=== PATIENT | male | born 1930 | race Caucasian/White ===

== ENCOUNTER 2020-09-01 00:39 | Emergency (ER) | payer MEDICARE ==
[~2020-09-01] VITALS: Ht 175.3 cm; Wt 70.3 kg
[2020-09-01 00:39] VITALS: BP_SYST 125
--- NOTE | 2020-09-01 00:39 | NUR ---
Pt josé manuel from home to bed 3 for evaluation
--- NOTE | 2020-09-01 00:55 | NUR ---
PT BIB BLS FROM HOME A&O X4 C/O RIGHT AND LEFT MIDDLE TO LOWER ABDOMINAL PAIN THAT STARTED EARLIER TODAY. PT REPORTS VOMITING "HALF A DOZEN TIMES". PT VOMIT APPEARS YELLOW IN COLOR. PT REPORTS 10 OUT OF 10. DENIES TAKING PAIN MEDICATION AT HOME. PT HX OF HYPERTENSION.
--- NOTE | 2020-09-01 01:00 | NUR ---
ER Dr. MEEK at bedside examining patient.
--- NOTE | 2020-09-01 01:05 | NUR ---
# 20 gauge angiocath placed to RIGHT UPPER ARM. Use of asceptic technique. Opsite placed over site. Blood return noted. Blood, BLOOD CULTURES, LACTIC for lab drawn from site. Flushed with 10 cc of normal saline. No evidence of infiltration noted. Patient tolerated well.
[2020-09-01] MEDS ORDERED: MORPHINE 4 MG/ML INJ. SYRINGE IVP ONE (01:15)
[2020-09-01] MEDS ORDERED: ONDANSETRON HCL 4 MG/2 ML VIAL IVP ONE (01:15)
[2020-09-01] MEDS ORDERED: NACL 0.9% 1,000 ML IV ONE (01:15)
--- NOTE | 2020-09-01 01:33 | NUR ---
RADIOLOGY AT BEDSIDE FOR XRAY.
--- NOTE | 2020-09-01 01:35 | NUR ---
CT CONSENT FORM SIGNED BY PATIENT AND PLACED IN CHART.
[2020-09-01 01:44] LABS: BASOPHILS % (AUTO) 0.3 % (0.0-2.0); EOSINOPHILS % (AUTO) 0.2 % (0.0-4.0); HEMATOCRIT 38.4 % (36-54); HEMOGLOBIN 12.4 g/dL (14.0-18.0); LYMPHOCYTES % (AUTO) 17.3 % (20.5-51.5); MEAN CORPUSCULAR HEMOGLOBIN 29 pg (27-31); MEAN CORPUSCULAR HGB CONC 32 % (32-36); MEAN CORPUSCULAR VOLUME 91 fL (79.0-98.0); NEUTROPHILS % (AUTO) 79.2 % (40.0-70.0); PLATELET COUNT (AUTO) 142 K/uL (130-430); RED BLOOD CELL COUNT(AUTO) 4.24 MIL/uL (4.2-6.2); RED CELL DISTRIBUTION WIDTH 16.9 % (9.0-15.0); WHITE BLOOD COUNT (AUTO) 6.3 K/uL (4.8-10.8)
[2020-09-01 01:45] LABS: LYMPHOCYTES # (AUTO) 1.1 K/uL (1.0-5.5); MONOCYTES # (AUTO) 0.2 K/uL (0.0-1.0)
[2020-09-01] MEDS ORDERED: fentaNYL CITRATE/PF 100 MCG/2 ML AMP IVP ONE (01:45)
[2020-09-01 01:49] LABS: PROTHROMBIN TIME 10.3 SECS (9.5-12.5)
[2020-09-01] MEDS ORDERED: fentaNYL CITRATE/PF 100 MCG/2 ML AMP ONE (01:49)
[2020-09-01 01:51] LABS: ANION GAP 13 (5-15); CALCIUM 9.4 mg/dL (8.4-11.0); CHLORIDE 102 mmol/L (98-107); GLUCOSE 192 mg/dL (70-99); POTASSIUM 5.1 mmol/L (3.5-5.1); SODIUM SERUM 139 mmol/L (136-145); UREA NITROGEN, BLOOD 39 mg/dL (8-21)
--- NOTE | 2020-09-01 01:52 | NUR ---
PT MEDICATED PER MD ORDERS. PT TOLERATED WELL.
[2020-09-01 01:57] LABS: ALANINE AMINOTRANSFERASE 20 U/L (12-78); ALBUMIN 4.3 g/dL (3.4-4.8); ASPARTATE AMINOTRANSFERASE 17 U/L (10-37); LIPASE 95 U/L (73-393); TOTAL BILIRUBIN 0.8 mg/dL (0.0-1.0)
--- NOTE | 2020-09-01 02:15 | NUR ---
Patient transported to radiology via GURNEY, accompanied by CLINT AND RN.
--- NOTE | 2020-09-01 02:34 | NUR ---
Returned from radiology, back to [facility]. VSS. NO REACTION NOTED TO CONTRAST.
[2020-09-01] MEDS ORDERED: ASPI-1155 PO (02:48)
[2020-09-01] MEDS ORDERED: CARV3.1246 PO (02:48)
[2020-09-01] MEDS ORDERED: FURO-149 PO (02:48)
[2020-09-01] MEDS ORDERED: POTA20TA83 PO (02:48)
--- NOTE | 2020-09-01 02:49 | NUR ---
Medication reconciliation completed with information provided by [facility]. Any prior medication reconciliation on file was reviewed and corrected.
--- NOTE | 2020-09-01 03:23 | NUR ---
PT ABLE TO GIVE URINE SAMPLE IN URINAL. SENT TO LAB. PT RESTING IN [facility]. PROVIDED WITH BLANKETS. VSS.
[2020-09-01 03:29] LABS: BILIRUBIN,URINE NEGATIVE (NEGATIVE); BLOOD, URINE 1+ (NEGATIVE); CLARITY/URINE CLEAR (CLEAR); COLOR,URINE YELLOW (YELLOW); GLUCOSE,URINE NEGATIVE (NEGATIVE); KETONES,URINE TRACE (NEGATIVE); LEUKOCYTE ESTERASE ,URINE NEGATIVE (NEGATIVE); NITRITE, URINE NEGATIVE (NEGATIVE); PROTEIN URINE NEGATIVE (NEGATIVE); UROBILINOGEN,URINE 0.2 (0.2-1.0)
[2020-09-01 03:32] LABS: BACTERIA,URINE FEW /HPF (None Seen); WBC,URINE 0-3 /HPF (0-3)
--- NOTE | 2020-09-01 03:58 | NUR ---
CALLED [facility], WHO WILL BE HERE IN 20 MINS TO CHECKOUT SUPERVISOR PATIENT.
[2020-09-01 04:33] VITALS: BP_SYST 105
== END 2020-09-01 04:33 | disposition home or self-care (01) ==
LOC: SED 00:39
DX: R10.12 Left upper quadrant pain (principal); D64.9 Anemia, unspecified; Z79.899 Other long term (current) drug therapy; Z79.82 Long term (current) use of aspirin
CPT/HCPCS: 36415; 71045; 74177; 76376; 80053; 81000; 83690; 85025; 85610; 85730; 93005; 96361; 96374; 96375; 99285; J2270; J2405; J3010; J7030; Q9967

== ENCOUNTER 2020-09-01 20:44 | Emergency (ER) | payer MEDICARE, SELFPAY ==
[~2020-09-01] VITALS: Ht 177.8 cm; Wt 54.4 kg
[~2020-09-01 20:44] MED LIST: ASPI-1155 PO; CARV3.1246 PO; FURO-149 PO; POTA20TA83 PO
[2020-09-01 20:51] VITALS: BP_SYST 122
--- NOTE | 2020-09-01 20:51 | NUR ---
Patient to ER bed 08 to gown for evaluation. Side rails up. Report given to ALESSANDRO Camacho
--- NOTE | 2020-09-01 20:52 | NUR ---
Pt brought by Son, A&Ox4, pt presents to ER with abdominal, N/V since yesterday getting worse today , skin pink and warm,cap refill <3, respirations even and unlabored, pt denies diarrhea or bleeding, will cont to monitor.
--- NOTE | 2020-09-01 20:55 | NUR ---
Dr Greenberg evaluating patient at bedside
[2020-09-01] MEDS ORDERED: ONDANSETRON HCL 4 MG/2 ML VIAL IVP ONE (21:15)
[2020-09-01] MEDS ORDERED: MORPHINE 2 MG/ML INJ. SYRINGE IVP ONE ×2 (21:15→23:00)
[2020-09-01 21:29] LABS: BASOPHILS % (AUTO) 0.4 % (0.0-2.0); HEMATOCRIT 39.8 % (36-54); HEMOGLOBIN 12.7 g/dL (14.0-18.0); LYMPHOCYTES # (AUTO) 0.5 K/uL (1.0-5.5); LYMPHOCYTES % (AUTO) 4.4 % (20.5-51.5); MEAN CORPUSCULAR HEMOGLOBIN 29 pg (27-31); MEAN CORPUSCULAR HGB CONC 32 % (32-36); MEAN CORPUSCULAR VOLUME 90 fL (79.0-98.0); MONOCYTES # (AUTO) 0.8 K/uL (0.0-1.0); MONOCYTES % (AUTO) 6.9 % (1.7-9.3); NEUTROPHILS # (AUTO) 9.8 K/uL (1.8-7.7); NEUTROPHILS % (AUTO) 88.3 % (40.0-70.0); PLATELET COUNT (AUTO) 140 K/uL (130-430); RED BLOOD CELL COUNT(AUTO) 4.42 MIL/uL (4.2-6.2); WHITE BLOOD COUNT (AUTO) 11.1 K/uL (4.8-10.8)
--- NOTE | 2020-09-01 21:30 | NUR ---
Pt resting at this time, A&Ox4, VSS
[2020-09-01 21:52] LABS: ANION GAP 9 (5-15); CALCIUM 9.4 mg/dL (8.4-11.0); CHLORIDE 106 mmol/L (98-107); CREATININE 1.26 mg/dL (0.55-1.30); GLUCOSE 169 mg/dL (70-99); POTASSIUM 5.3 mmol/L (3.5-5.1); SODIUM SERUM 140 mmol/L (136-145); UREA NITROGEN, BLOOD 37 mg/dL (8-21)
[2020-09-01 21:58] LABS: ALANINE AMINOTRANSFERASE 19 U/L (12-78); ALBUMIN 3.9 g/dL (3.4-4.8); AMYLASE 71 U/L (0-100); ASPARTATE AMINOTRANSFERASE 25 U/L (10-37); LACTATE DEHYDROGENASE 201 U/L (85-227); LIPASE 77 U/L (73-393); TOTAL BILIRUBIN 1.1 mg/dL (0.0-1.0)
[2020-09-01 22:02] LABS: C-REACTIVE PROTEIN QUANT 5.1 mg/dL (0-0.5)
[2020-09-01 22:04] LABS: INR 1.1 (0.80-1.20); PROTHROMBIN TIME 10.8 SECS (9.5-12.5)
[2020-09-01] MEDS ORDERED: NS 1000 ML IV.SOLN IV ONE (22:15)
[2020-09-01] MEDS ORDERED: metroNIDAZOLE 500 mg/NS 100 ML IV ONE (22:15)
[2020-09-01] MEDS ORDERED: PIPERACILLIN/TAZO 3.38 GM in NS 50 ML IV ONE (22:15)
[2020-09-01 22:16] LABS: BILIRUBIN,URINE 1+ (NEGATIVE); BLOOD, URINE 2+ (NEGATIVE); CLARITY/URINE CLEAR (CLEAR); COLOR,URINE YELLOW (YELLOW); GLUCOSE,URINE NEGATIVE (NEGATIVE); KETONES,URINE NEGATIVE (NEGATIVE); LEUKOCYTE ESTERASE ,URINE NEGATIVE (NEGATIVE); NITRITE, URINE NEGATIVE (NEGATIVE); PH,URINE 5.5 (5.0-8.0); PROTEIN URINE TRACE (NEGATIVE); UROBILINOGEN,URINE 0.2 (0.2-1.0)
--- NOTE | 2020-09-01 22:20 | NUR ---
Pt with Hx of CHF, Dr Greenberg awared, per Dr Greenberg Bolus of fluids can be administered x 1 for possible sepsis. fluids started at this time
[2020-09-01] MEDS ORDERED: PIPERACILLIN/TAZOBACTAM 3.375 GM/VIAL (ZOSYN) IV ONE ×2 (22:31→23:33)
[2020-09-01 22:34] LABS: BACTERIA,URINE MODERATE /HPF (None Seen)
--- NOTE | 2020-09-01 22:56 | NUR ---
Morphine 2mg IVP given as ordered for persistent pain , well tolerated.
--- NOTE | 2020-09-01 23:01 | NUR ---
Reportn given to October RN
--- NOTE | 2020-09-01 23:38 | NUR ---
Blood for labwork drawn from [employer]. Patient tolerated well.
--- NOTE | 2020-09-02 00:18 | NUR ---
Patient's family at bedside.
--- NOTE | 2020-09-02 02:30 | NUR ---
Patient to be transferred to [facility] . Is being transferred due to higher level of care. Receiving facility has accepting physician and available space. ER physician has signed transfer form. Patient or responsible alliance party has agreed to transfer and signed form. Patient belongings inventoried and will be sent with patient. Copy of nursing notes, lab reports, EKG, Physicians Orders and X-rays to be sent with patient. Report called to ALESSANDRO Escalante at receiving facility. Receiving physician is . [facility] ambulance service has been called for transfer. ETA is 15 minutes.
[2020-09-02 03:09] VITALS: BP_SYST 106
--- NOTE | 2020-09-02 03:09 | NUR ---
Patient will transfer to [facility] via gurney with BLS/EMT.
--- NOTE | 2020-09-02 03:14 | NUR ---
Called patient's family (his partner) to update patient's status and transfer to [facility].
== END 2020-09-02 03:09 | disposition short-term general hospital (02) ==
LOC: SED 20:44
DX: R10.9 Unspecified abdominal pain (principal); K56.609 Unspecified intestinal obstruction, unspecified as to partial versus complete obstruction; R77.8 Other specified abnormalities of plasma proteins; I11.0 Hypertensive heart disease with heart failure; I50.9 Heart failure, unspecified; Z79.899 Other long term (current) drug therapy; Z79.82 Long term (current) use of aspirin; Z20.822 Contact with and (suspected) exposure to COVID-19
CPT/HCPCS: 36415; 74018; 80053; 81000; 82150; 83605; 83615; 83690; 84484; 85025; 85610; 85730; 86140; 87040; 87081; 87086; 87426; 93005; 96365; 96366; 96375; 96376; 99285; J2270; J2405; J2543; J3490; J7030

== ENCOUNTER 2020-10-12 17:11 | Emergency (ER) | payer MEDICARE, SELFPAY ==
[~2020-10-12] VITALS: Ht 177.8 cm; Wt 50.8 kg
[2020-10-12 17:19] VITALS: BP_SYST 167
[2020-10-12 18:04] LABS: BASOPHILS % (AUTO) 0.6 % (0.0-2.0); HEMATOCRIT 44.5 % (36-54); HEMOGLOBIN 14.5 g/dL (14.0-18.0); LYMPHOCYTES # (AUTO) 0.8 K/uL (1.0-5.5); LYMPHOCYTES % (AUTO) 16.1 % (20.5-51.5); MEAN CORPUSCULAR HEMOGLOBIN 30 pg (27-31); MEAN CORPUSCULAR HGB CONC 33 % (32-36); MEAN CORPUSCULAR VOLUME 92 fL (79.0-98.0); MONOCYTES # (AUTO) 0.4 K/uL (0.0-1.0); MONOCYTES % (AUTO) 7.1 % (1.7-9.3); NEUTROPHILS # (AUTO) 3.9 K/uL (1.8-7.7); NEUTROPHILS % (AUTO) 76.2 % (40.0-70.0); PLATELET COUNT (AUTO) 183 K/uL (130-430); RED BLOOD CELL COUNT(AUTO) 4.84 MIL/uL (4.2-6.2); RED CELL DISTRIBUTION WIDTH 18.5 % (9.0-15.0); WHITE BLOOD COUNT (AUTO) 5.1 K/uL (4.8-10.8)
[2020-10-12] MEDS ORDERED: LEUP22.53 IM (18:14)
[2020-10-12] MEDS ORDERED: NACL 0.9% 500 ML IV ONE ×2 (18:30→21:30)
[2020-10-12 18:53] LABS: ANION GAP 5 (5-15); CALCIUM 9.1 mg/dL (8.4-11.0); CHLORIDE 103 mmol/L (98-107); CREATININE 1.05 mg/dL (0.55-1.30); GLUCOSE 111 mg/dL (70-99); SODIUM SERUM 137 mmol/L (136-145); UREA NITROGEN, BLOOD 22 mg/dL (8-21)
[2020-10-12 18:59] LABS: ALANINE AMINOTRANSFERASE 18 U/L (12-78); ALBUMIN 3.1 g/dL (3.4-4.8); ASPARTATE AMINOTRANSFERASE 28 U/L (10-37); TOTAL BILIRUBIN 0.7 mg/dL (0.0-1.0)
[2020-10-12] MEDS ORDERED: IOHEXOL 350 mgI/mL, 150 ML INFUS..BTL IV ONE (19:43)
[2020-10-12] MEDS ORDERED: ASPIRIN 81 MG TAB.CHEW PO ONE (21:15)
[2020-10-13 02:45] VITALS: BP_SYST 103
== END 2020-10-13 02:45 | disposition short-term general hospital (02) ==
LOC: SED 17:11
DX: R06.02 Shortness of breath (principal); I11.0 Hypertensive heart disease with heart failure; I50.9 Heart failure, unspecified; Z79.899 Other long term (current) drug therapy; Z20.822 Contact with and (suspected) exposure to COVID-19
CPT/HCPCS: 36415; 71045; 71275; 76376; 80053; 82550; 84484; 85025; 85379; 87426; 93005; 99285; J7040; Q9967